=== PATIENT | male | born 1985 | race African-American/Black ===

== ENCOUNTER 2018-11-06 04:40 | Emergency (ER) | payer OTHER ==
[~2018-11-06] VITALS: Ht 170.2 cm; Wt 97.5 kg
[~2018-11-06 04:40] MED LIST: CILOXAN5 ML OP; NORCO 5-325 TA1 EACH PO
[2018-11-06 05:09] LABS: ABSOLUTE NEUTROPHILS 5.5 thou/uL (1.4-8.2); BASOPHILS 0.9 % (0.0-2.0); EOSINOPHILS 3.4 % (0.0-3.0); HEMATOCRIT 48.9 % (42.0-52.0); HEMOGLOBIN 16.7 gm/dL (14.0-18.0); LYMPHOCYTES 28.3 % (24.0-44.0); MCH 27.9 pg (26.0-34.0); MCHC 34.2 g/dL (28.0-37.0); MCV 81.6 fL (80.0-100.0); MONOCYTES 6.7 % (1.0-8.0); PLATELET COUNT 248 thou/uL (150-400); POLYS 60.7 % (36.0-66.0); RDW 14.6 % (10.5-14.5); WBC 9.1 thou/uL (4.0-11.0)
[2018-11-06 05:17] LABS: ANION GAP 7 mmol/L (7-16); BUN 15 mg/dL (7-18); CALCIUM 9.6 mg/dL (8.5-10.1); CHLORIDE 100 mmol/L (98-107); CO2 28 mmol/L (21-32); CREATININE 1.2 mg/dL (0.7-1.3); GLUCOSE 102 mg/dL (74-106); POTASSIUM 4.1 mmol/L (3.5-5.1); SODIUM 135 mmol/L (136-145)
[2018-11-06 05:27] LABS: TROPONIN-I <0.06 ng/mL (<0.06)
[2018-11-06 05:51] VITALS: BP 131/87
--- NOTE | 2018-11-06 13:42 | EKG ---
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
== END 2018-11-06 05:52 | disposition home or self-care (01) ==
LOC: ER 04:40
PROVIDERS: Emergency Medicine
DX: R07.89 Other chest pain (principal); I10 Essential (primary) hypertension

== ENCOUNTER 2019-07-06 13:47 | Emergency (ER) | payer BC ==
[~2019-07-06] VITALS: Ht 170.2 cm; Wt 102.1 kg
[2019-07-06 14:09] LABS: URINE BILIRUBIN NEGATIVE (Negative); URINE BLOOD TRACE (Negative); URINE CLARITY CLEAR; URINE COLOR YELLOW; URINE GLUCOSE-RANDOM* NEGATIVE (Negative); URINE KETONES NEGATIVE (Negative); URINE LEUKOCYTES-REFLEX NEGATIVE (Negative); URINE NITRITE-REFLEX NEGATIVE (Negative); URINE PROTEIN (DIPSTICK) NEGATIVE (Negative); URINE SPECIFIC GRAVITY 1.015 (1.005-1.035); URINE UROBILINOGEN 0.2 E.U./dl (0.2-1.0)
[2019-07-06 14:41] LABS: BASOPHILS 0.9 % (0.0-2.0); EOSINOPHILS 3.6 % (0.0-3.0); HEMATOCRIT 50.9 % (42.0-52.0); HEMOGLOBIN 17.2 gm/dL (14.0-18.0); MCH 28.1 pg (26.0-34.0); MCHC 33.9 g/dL (28.0-37.0); MCV 82.9 fL (80.0-100.0); MONOCYTES 6.1 % (1.0-8.0); PLATELET COUNT 224 thou/uL (150-400); POLYS 55.4 % (36.0-66.0); RBC 6.14 mil/uL (4.50-6.00); RDW 14.3 % (10.5-14.5); WBC 5.3 thou/uL (4.0-11.0)
[2019-07-06 14:53] LABS: CALCIUM 9.1 mg/dL (8.5-10.1); CREATININE 1.2 mg/dL (0.7-1.3)
[2019-07-06 14:59] LABS: ALBUMIN 3.7 g/dL (3.4-5.0); TOTAL BILIRUBIN 1.1 mg/dL (<0.1-1.0)
[2019-07-06] MEDS ORDERED: ONDANSETRON HCL4 M2 PO (15:55)
[2019-07-06] MEDS ORDERED: PROMETHAZINE-C473 ML PO (15:55)
[2019-07-06 16:10] VITALS: BP 128/64
== END 2019-07-06 16:10 | disposition home or self-care (01) ==
LOC: ER 13:47
PROVIDERS: Physician Assistant
DX: R05 Cough (principal); R09.89 Other specified symptoms and signs involving the circulatory and respiratory systems; R11.2 Nausea with vomiting, unspecified; I10 Essential (primary) hypertension; F17.200 Nicotine dependence, unspecified, uncomplicated